=== PATIENT | female | born 2000 | race Caucasian/White ===

== ENCOUNTER 2022-02-25 21:11 | Emergency (ER) | payer OTHER ==
[2022-02-25 21:22] VITALS: BP 133/81; PULSE 77; RESP 18; TEMP 98.1; BMI 27.4
== END 2022-02-25 22:58 | disposition home or self-care (01) ==
LOC: JER 21:11
DX: B34.9 Viral infection, unspecified (principal)
CPT/HCPCS: 0241U-QW; 87651; 99283-25

== ENCOUNTER 2023-02-08 17:14 | Emergency (ER) | payer OTHER ==
[2023-02-08 18:20] VITALS: BP 116/62; PULSE 92; RESP 17; TEMP 98.2; BMI 28.3
[2023-02-08 19:37] LABS: BASO % 0.5 % (0-2.0); EOS % 4.7 % (0-4.5); HEMOGLOBIN 13.9 GM/dL (10.7-15.3); LYMPH % 28.3 % (8-40); MCH 27.4 pg (25.7-33.7); MCHC 32.4 g/dl (32.0-36.0); MEAN CELL VOLUME 84.4 fl (80-96); MEAN PLT VOLUME 9.4 fl (7.5-11.1); MONO % 6.2 % (3.8-10.2); NEUT % 60.3 % (42.8-82.8); PLATELET COUNT 264 10^3/uL (134-434); RBC 5.09 M/mm3 (3.60-5.2); RDW 13.3 % (11.6-15.6); WHITE BLOOD COUNT 10.4 K/mm3 (4.0-10.0)
[2023-02-08 19:43] LABS: INR 1.22 (0.83-1.09); PROTHROMBIN TIME (PATIENT) 14.1 SEC (9.7-13.0)
[2023-02-08 19:46] LABS: ACTIVATED PTT 32.6 SECONDS (25.2-36.5)
[2023-02-08 20:05] LABS: POTASSIUM 3.9 mmol/L (3.5-5.1)
[2023-02-08 20:08] LABS: ALBUMIN 3.8 g/dl (3.4-5.0); BLOOD UREA NITROGEN 11.9 mg/dL (7-18); CALCIUM 9.7 mg/dL (8.5-10.1)
[2023-02-08 20:11] LABS: CREATININE 0.9 mg/dL (0.55-1.3)
[2023-02-08 20:13] LABS: BILIRUBIN,TOTAL 0.2 mg/dL (0.2-1); TOT PROT 7.3 g/dl (6.4-8.2)
[2023-02-08] MEDS ORDERED: KETOROLAC TROMETHAMINE 30 MG/1 ML VIAL IVPUSH ONE (21:12)
[2023-02-08] MEDS ORDERED: KETOROLAC TROMETHAMINE 30 MG/1 ML VIAL ONE (21:15)
== END 2023-02-08 21:29 | disposition home or self-care (01) ==
LOC: JERFT 17:14
PROC: 3E0333Z Introduction of Anti-inflammatory into Peripheral Vein, Percutaneous Approach (ICD-10-PCS; principal; 2023-02-08)
DX: R07.89 Other chest pain (principal); R06.02 Shortness of breath; R07.1 Chest pain on breathing
CPT/HCPCS: 36415; 71046-TC-FY; 80053; 84484; 84703; 85025; 85379; 85610; 85730; 93005; 93010; 99285-25